=== PATIENT | male | born 1995 | race Caucasian/White ===

== ENCOUNTER 2016-09-28 04:42 | Emergency (ER) | payer OTHER ==
[~2016-09-28] VITALS: Ht 172.7 cm; Wt 77.0 kg
[~2016-09-28 04:42] MED LIST: NOHOMEMEDS
[2016-09-28 06:00] VITALS: BP 137/82
== END 2016-09-28 06:02 | disposition home or self-care (01) ==
LOC: EME → EDBD 04:42 → EME 04:42
DX: F10.129 Alcohol abuse with intoxication, unspecified (principal); F17.200 Nicotine dependence, unspecified, uncomplicated
CPT/HCPCS: 81003; 99281; 99283

== ENCOUNTER 2017-04-06 00:16 | Emergency (ER) | payer OTHER ==
[~2017-04-06] VITALS: Ht 175.3 cm; Wt 71.2 kg
[2017-04-06] MEDS ORDERED: KEFLEX500 MG PO (02:23)
[2017-04-06 02:36] VITALS: BP 135/80
== END 2017-04-06 02:37 | disposition home or self-care (01) ==
LOC: EME 00:16 → EXP 00:16
PROC: 0H93XZZ Drainage of Left Ear Skin, External Approach (ICD-10-PCS; principal; 2017-04-06)
DX: L72.3 Sebaceous cyst (principal); F17.200 Nicotine dependence, unspecified, uncomplicated
CPT/HCPCS: 99281; 99283

== ENCOUNTER 2017-04-07 20:59 | Emergency (ER) | payer OTHER ==
[~2017-04-07] VITALS: Ht 175.3 cm; Wt 69.2 kg
[~2017-04-07 20:59] MED LIST changes: +KEFLEX500 MG PO
[2017-04-07 23:40] VITALS: BP 113/68
== END 2017-04-07 23:41 | disposition home or self-care (01) ==
LOC: EME 20:59 → EXP 20:59
DX: Z48.01 Encounter for change or removal of surgical wound dressing (principal); H60.02 Abscess of left external ear; F17.200 Nicotine dependence, unspecified, uncomplicated
CPT/HCPCS: 99281; 99284

== ENCOUNTER 2018-03-27 01:04 | Emergency (ER) | payer OTHER ==
[~2018-03-27] VITALS: Ht 170.2 cm; Wt 73.2 kg
[2018-03-27] MEDS ORDERED: NARCAN4 MG NS (03:00)
[2018-03-27 04:45] LABS: HEMATOCRIT 42.2 % (38.0-50.0); HEMOGLOBIN 14.9 G/DL (12.5-16.6); MCH 30.3 PG (29.0-34.0); MCHC 35.3 G/DL (30.0-36.0); MCV 85.9 FL (86-99); PLATELET COUNT 244 K/uL (156-360); RBC DIS.WIDTH-CV 13.3 % (11.8-14.6); RBC DIS.WIDTH-SD 42.2 % (39-53); RED BLOOD COUNT 4.91 M/uL (4.00-5.50); WHITE BLOOD COUNT 19.8 K/uL (4.1-10.2)
[2018-03-27 04:58] LABS: CHLORIDE 105 mEq/L (99-109); POTASSIUM 4.5 mEq/L (3.7-5.4); SODIUM 139 mEq/L (136-147)
[2018-03-27 05:00] LABS: GLUCOSE 120 mg/dL (70-99)
[2018-03-27 05:04] LABS: CREATININE 0.9 mg/dL (0.6-1.3); GFR ESTIMATE (CALCULATED) > 59 mL/min/ (58.99-99999)
[2018-03-27 05:05] LABS: UREA NITROGEN (BUN) 16 mg/dL (9-23)
[2018-03-27 05:06] LABS: TROP-I INTERPRETATION NEGATIVE; TROPONIN-I 0.02 ng/mL (0.0-0.30)
[2018-03-27] MEDS ORDERED: CLONIDINE HCL0.1 MG PO (05:48)
[2018-03-27 05:55] VITALS: BP 131/70
== END 2018-03-27 05:56 | disposition home or self-care (01) ==
LOC: EME 01:04
PROVIDERS: Emergency Medicine
DX: F10.129 Alcohol abuse with intoxication, unspecified (principal); F12.90 Cannabis use, unspecified, uncomplicated; S00.93XA Contusion of unspecified part of head, initial encounter; W18.30XA Fall on same level, unspecified, initial encounter; F17.200 Nicotine dependence, unspecified, uncomplicated
CPT/HCPCS: 70450; 80048; 84484; 85027; 93005; 99281; 99284; J2550